=== PATIENT | male | born 1945 | race Caucasian/White ===

== ENCOUNTER 2021-09-14 09:06 | Day surgery (SDC) | payer OTHER, MEDICARE ==
[2021-09-14] MEDS ORDERED: Decadron 4 MG INJ IJ ONE (09:07)
[2021-09-14] MEDS ORDERED: LIDOCAINE HCL 2% 100 MG/5 ML IJ ONE (09:07)
[2021-09-14] MEDS ORDERED: Lactated Ringers 1,000 ML IV ONE (11:21)
[2021-09-14] MEDS ORDERED: DIPRIVAN 200 MG/20 ML IV ONE (11:26)
--- NOTE | 2021-09-14 13:20 | XRAY ---
Indication: Left C2-C5 MBB. Intraoperative fluoroscopy provided for 30 seconds. 3 digital spot image submitted for interpretation demonstrates posterior needle tips projecting over the expected left C2-C5 nerve roots. Correlate with intraoperative findings/report. Incidental multilevel bilateral posterior cervical spinal fusion hardware.
--- NOTE | 2021-09-14 13:59 | XRAY ---
30 seconds fluoroscopy time in surgery for left C2-C5 MBB.
== END 2021-09-14 12:00 | disposition home or self-care (01) ==
LOC: SDC-PAIN 09:06
PROVIDERS: ATTEND Psychiatry & Neurology Pain Medicine
DX: M47.812 Spondylosis without myelopathy or radiculopathy, cervical region (principal); E11.9 Type 2 diabetes mellitus without complications; I10 Essential (primary) hypertension; I48.91 Unspecified atrial fibrillation; Z79.899 Other long term (current) drug therapy
CPT/HCPCS: 64490; 64491; 64492; 72040; 77002; 82947; J1100; J2704